=== PATIENT | male | born 1950 | race Caucasian/White ===

== ENCOUNTER 2025-09-30 15:22 | Emergency (ER) | payer MEDICARE, BC, SELFPAY ==
--- NOTE | 2025-09-30 15:40 | ED.GENADULT ---
HPI - General Adult General Chief complaint: Psychiatric Symptoms Stated complaint: Psych evaluation Time Seen by Provider: 09/30/25 15:58 Source: patient Mode of arrival: ambulatory Limitations: no limitations History of Present Illness ED Provider: dionicio maxwell do HPI narrative: 75 year old male with a history of hypertension, hyperlipidemia, hypothyroidism but no past medical history of mental illness or suicide attempt. He has never been in inpatient mental health facility. He is dealing with some life stress per the that he has taken full responsibility for. He does suffer from anxiety. He felt a questionnaire and his primary care office today stating do everything of any your life when he puts sometimes. But he states he would not hurt himself in his has no concerns. He has no access to guns. He has never been attempt in the past. He states his PCP made him come here but he does not feel this is necessary I had a long discussion was about triage they both contract for safety they will follow up with the therapist has no concerns that he will harm himself and patient states he felt like he was trapped into this after filling out the questionnaire. MD complaint: Anxiety and depression Onset (ago): week(s) Severity: mild Relieving factors: none Exacerbating factors: other Associated symptoms: denies other symptoms Related Data Allergies Allergy/AdvReac Type Severity Reaction Status Date / Time Iodinated Contrast Media AdvReac Difficulty Verified 09/30/25 15:56 (Contrast Dye) Swallowing Review of Systems Review of Systems: Yes all other systems are reviewed and are negative PMFSH Past Medical History Attestation statement: The following information was validated with the patient. Source: old records reviewed Medical History Hyperlipidemia Hypothyroidism (acquired) Hypertension Social History Social History (Updated 09/30/25 @ 16:37 by Dionicio Maxwell DO) Patient Tobacco Use Status: Tobacco use Unknown Advance Directives: No Advance Directives Information Provided: No Do you have a plan to hurt others: No Plan Physical Exam ED Vital Signs: Vital Signs - 24 hr 09/30/25 15:54 09/30/25 16:14 Temperature 98.1 F 98.1 F Pulse Rate 61 61 Respiratory Rate 16 16 Blood Pressure 139/85 139/85 Pulse Oximetry 99 99 Oxygen Delivery Method Room Air Room Air BMI result Body Mass Index 25.1 Appearance: Alert. Oriented X3. No acute distress. Eyes: Pupils equal, round and reactive ENT: Atraumatic Neck: Normal inspection. CVS: Pulses normal. Respiratory: No respiratory distress. Abdomen: Soft and nontender. Atraumatic Skin: Skin warm and dry. Normal skin color. Extremities: Normal range of motion Neuro: Oriented X 3. No motor deficit. No sensory deficit. Steady gait Course Course Course Narrative: This is a Rapid Medical Examination (RME) performed by Yoni Culver PA-C in triage. Full HPI, ROS, assessment and treatment plan per primary provider in the Main ED. Hx: 75 yo M here from PCP office for passive SI. no plan. states he is under a lot of stress and it's ruining my life . reports fleeting thoughts of harming himself. Plan: Medical Decision Making Medical Decision Making MDM Narrative: 75 year old male with a history of hypertension, hyperlipidemia, hypothyroidism but no past medical history of mental illness and no access to firearms. He is sent here via his primary care for vague passive SI but no plan and no attempts. He and his are asking to leave. They seem very reasonable they have no concerns and contract for safety. He has no risk factors. He agrees to call therapist. He has no active SI or HI. The is advocated for him to leave Differential Diagnosis Differential Diagnoses: The differential diagnosis associated with the presentation includes Stress reaction Admission/Observation Consideration of admission/observation: Escalation of care including admission/observation considered I do not think he would benefit or needs inpatient psychiatric admission Independent Historian Clinical information obtained from an independent historian. History obtained from or confirmed by: Spouse External Record Review External record reviewed: Outpatient record Discharge Plan Discharge Clinical Impression: Stress Patient Disposition: Home, Self-Care Instructions: Stress (ED) Additional Instructions: You were seen in our Emergency Department today for treatment of a behavioral health issue. It is important after your visit that you follow up with either your behavioral health provider or a primary care doctor within 7 days.? If you have trouble finding a therapist you can reach out to [address] [phone] The National Suicide and Crisis Lifeline can be reached 7 days a week 24 hours a day.? Call 988 to speak with someone.? Return for any worsening symptoms or concerns such as thoughts of self harm or harm to others. Please call 911 if you feel your mental health is worsening.? Referrals: Garth Davis MD [Primary Care Provider, Internal Medicine] Interventions: [place]-Suicide Risk Severity Scale Last Done: 09/30/25 16:13 ED Discharge Assessment Last Done: 09/30/25 16:14 Discharge Date/Time: 09/30/25 16:15 Print Language: Frisian
[2025-09-30 15:54] VITALS: BP 139/85; PULSE 61; RESP 16; TEMP 36.7; O2SAT 99; BMI 25.1
[2025-09-30 16:14] VITALS: BP 139/85; PULSE 61; RESP 16; TEMP 36.7; O2SAT 99
--- OUTSIDE RECORDS SUMMARY | 2025-09-30 19:05 | XMS_ITS | Data Portability ---
Author Organization [facility], [facility] Address [address] [place] [address] Care Team Providers Care Dish Machine Operator Name Role Phone Nahomy Ching Primary Care Provider Assessment No assessment recorded. Plan of Treatment Reminders Order Date Submit Date Provider Name Organization Details Last Modified By Last Modified Time Details Appointments None recorde d. Lab None recorde d. Referral None recorde d. Procedures None recorde d. Surgeries None recorde d. Imaging XR, tibia + fibula, 2 view 2024 14:16: 15 025 [facility] [address],[facility] [address], [place], [address], Shirin moreno PA-C 5 16:10:18 MedicationOrders None recorde d. VaccineOrders None recorde d. Patient TargetsNo targets recorded. Patient InstructionsNo instructions recorded. Reason for Referral None Reported. Results Created Date Observation Date Name Description Value Unit Range Abnormal Flag Specimen Type Note LastModifiedBy Organization Detail LastModifiedTime 06/06/2025 06/06/2025 tibia/fibula 2 view [email or web address]=jaFfCnmQH6eGrtXHm8n%7CFUavEvobo3zpui%1Ac7PJv7 ztOqfT0pDoVNbtdPp2JaAISgVxyDKG0aSvMPmru53c6004OX1GxeD7KWhZnHlTrkGuM Not Available [facility] , [address],[facility] [address] , [place] , [address], , 06/06/2025 14:33:36 06/06/2025 06/06/2025 tibia/fibula 2 view [email or web address]=ayVuVczXW5eTyxUUo1o%9PJTswGndua9yytn%7Ic8XYu9 ysIcrX0jDaNAstgQp3PjXFNdEjyFAV6eDbVWxln45u6430LY4IchZ9YJiEkWkCzmHyL Not Available [facility] , [address],[facility] [address] , [place] , [address], , 06/06/2025 14:33:37 Result Notes Documentation Provider Name and Address Organization Details Recorded Time Xr, Tibia + Fibula, 2 View : [email or web address] Encrypted=nqFyUfwAH9rOkxQ Uv6g%2FAJhcVeqgu4himn%2Fg 6BIo6ecXinF7jWcCDknsKm9Pm IZQtLhwKBD5hSxZVoqz73i323 6LA1RbgL4BVjFnXcRfgQiT Not Available [facility] 06/06/2025 14:33: 36 Xr, Tibia + Fibula, 2 View : [email or web address] Encrypted=ukUgNbaGJ3nFdnC Uv6g%9RZNkqHrtxe5kdyv%2Fg 2EKw4knVdwY9kAnFWogzOh6Ms UAExAczTSA1tYlBHedo10r767 3NP1JxdM7HEuCzYvTqfYwV Not Available [facility] 06/06/2025 14:33: 37 Problems Name Problem SNOMED Code Status Onset Date Resolution Date Notes Provider Name and Address Organization Details Recorded Time No complaints 351701742 Active Status : 'A'; Not Available [facility] 4 09:25:34 Pain of left calf 7617172956991 109 Active 2024 MIHAI torres [place] - [facility] 14:15:40 Problem Notes None recorded. Medical Equipment None Reported. Allergies Allergen ID Allergen Name Allergen Category Reaction Reaction Severity Criticality Documentation Date Start Date Code Code System Note Provider Name and Address Organization Details Recorded Time 418417 iopamidol medicatio n Not available Not available Not available 06/06/2025 5966 RxNorm MIHAI DELANEY torres [place] - [facility] 14:15:31 Medications Name Authored On Sig Start Date Stop Date Status Note Indication Fill Status Repeat Number Dispense Quantity LastModified by Organization Details LastModified Time amlod ipine 2.5 mg table t 5 13:00:08 TAKE 1 TABL ET BY KENDELL Dee active Not Available Not availab le 0 Not Available Not Available [facility] - External Data Service - prod 06/06/2025 13:00:08 atorv astat in 20 mg table t 5 13:00:08 TAKE 1 TABL ET BY KENDELL Dee active Not Available Not availab le 0 Not Available Not Available [facility] - External Data Service - prod 06/06/2025 13:00:08 levot hyrox ine 88 mcg table t 5 13:00:08 TAKE 1 TABL ET BY CATHIUT Rolo Dee active Not Available Not availab le 0 Not Available Not Available [facility] - External Data Service - prod 06/06/2025 13:00:08 losar medina 25 mg table t 5 13:00:08 TAKE 1/2 TABL ET BY CATHIUT Rolo Dee active Not Available Not availab le 0 Not Available Not Available [facility] - External Data Service - prod 06/06/2025 13:00:08 tamsu losin 0.4 mg capsu le 5 13:00:08 TAKE 1 CAPS ULE BY CATHIUT Rolo Dee active Not Available Not availab le 0 Not Available Not Available [facility] - External Data Service - prod 06/06/2025 13:00:08 cipro floxa chivo 500 mg table t 13:00:10 TAKE 1 TABL ET BY MOUT H TWIC E JEAN Y TAKE IN MORN ING AND EVEN ING DAY OF PROS JONES BIOP SY active Not Available Not availab le 0 Not Available Not Available [facility] - External Data Service - prod 06/06/2025 13:00:10 diaze yamile 10 mg table t 13:00:10 TAKE 1 TABL ET BY MOUT H ONCE A DAY NEED ED AT LEAS T 45 CAROLINE MISBAH PRIO R TO PROC EDUR E active Not Available Not availab le 0 Not Available Not Available [facility] - External Data Service - prod 06/06/2025 13:00:10 celec oxib 200 mg capsu le 13:03:47 TAKE 1 CAPS ULE BY MOUT H EVER Y DAY WITH MEAL S FOR LEFT CALF INFL TORSTEN TION active Not Available Not availab le 0 Not Available Not Available [facility] - External Data Service - prod 06/15/2025 13:03:47 finas terid e 5 mg table t 13:03:47 TAKE 1 TABL ET BY MOUT H EVER Y DAY active Not Available Not availab le 0 Not Available Not Available [facility] - External Data Service - prod 06/15/2025 13:03:47 omepr azole 20 mg capsu le,de layed relea se 13:03:47 TAKE 1 CAPS ULE BY MOUT H JEAN Y active Not Available Not availab le 0 Not Available Not Available [facility] - External Data Service - prod 06/15/2025 13:03:47 Vitals Date Recorded Body height Body mass index (BMI) Body weight Provider Name and Address Organization Details Last Updated DateTime 06/06/2025 172.72 cm 26.5 kg/m2 55435.07 g MIHAI BALTAZAR [place] - [facility] 06/06/2025 14:15:20 Social History Social History Observation Description Date Observed Sex Male Gender Identity Identifies as male 06/17/2025 Sexual orientation Straight or heterosexual 12/01 Legal Sex Male Status Not (finding) 09/30/20 25 No social history survey screeners recorded No social history SDOH screeners recorded Functional Status None recorded. No Functional Screening assessment recorded No Functional SDOH screeners recorded Mental Status None recorded. No Mental Screening assessment recorded No Mental SDOH screeners recorded Family History Nothing Reported. Medical History No medical history recorded. Past Encounters Encounter ID Performer Location Encounter Start Date Encounter Closed Date Diagnosis/Indication Diagnosis SNOMED-CT Code Diagnosis ICD10 Code Diagnosis IMO Codes Diagnosis Note [id number] Shirin Fernandez PA-C [facility] [place] [address] [place] [address] 06/06/2025 12:58:49 06/17/2025 14:08:55 Pain of left calf 5805672625 744192 M79.662 [id number] Health Concerns Section Related Observation LastModified by Organization Detai ls LastModified Time None Recorded Concern Status LastModified by Organization Details LastModified Time None Recorded SDOH Concern Status LastModified by Organization Detai ls LastModified Time None Recorded Advance Directives Directive None Recorded Payers Insurance Date Sequence Insurance Name Policy Number Policy Feng Covered Member ID Feng Member ID Guarantor Name 06/17/2025 2 [place] [id number] Oct Sayda [id number] Oct Carlo Reagan 06/06/2025 1 [place] [employer] [place] Oct Sayda [id number] Oct Sayda Notes Date Note Type Note Provider Name and Address Organization Details Recorded Time 06/06/2025 text/html I am seeing the patient today under the supervision of Dr. Guerra who was available but who did not see the patient. History is taken from the patient HPI: Patient presents today to the orthopedic urgent care clinic 75-year-old male concerning intermittent and vague left calf pain. He has a history of a right calf Achilles tear and repair many years ago. His left calf started bothering him last . This was after a bike ride. He rested it and thought it got better and went for very light bike ride and seemed to do well however it seems to be provoked after time in the car. Tells me he gets out of the car and he has a very severe limp. Has occasional very sharp pains to his left Achilles. He went to 1 visit of physical therapy where they could not recommend locate his pain and he had no symptoms so he was discharged. Subsequently had a negative ultrasound at [facility]. He presents today to the orthopedic urgent care clinic for further evaluation. Past family, medical, social history and review of systems has been reviewed, updated and is located in the patient s chart. EXAMINATION: Patient transitions without difficulty. He has left ankle range of motion intact. Achilles is clearly palpable. He has full dorsi and plantarflexion intact. He transitions and ambulates without difficulty. Calf was nontender to palpation. He shows me an area in the muscle belly of his calf where he had an old injury. I do not palpate any rents or deficits here. He is otherwise alert oriented x 3 mood and affect appropriate within normal limits. X-RAYS: Were ordered, obtained and independently reviewed today in our office. There were 2 views of the left tibia shows no acute bony pathology or process. Performed in the findings are as follows: DIAGNOSIS: Left calf strain MEDICAL DECISION MAKING: Patient is educated. I would recommend ice rest stretching and foam rolling. He is going to let me know how he is doing. If he has worsening signs or symptoms he will let me know and we will further evaluate. Questions answered on his behalf. Medication is prescribed today. Patient has been counseled on the risks, benefits, and interactions with other medications at this time. Questions regarding medications of any answered on behalf of the patient. Celecoxib is prescribed to the patient at this time. Risks and benefits of the medication are discussed. He is to take 1 tab p.o. daily. Therapy recommended and referral given today: Today's visit involved examining the patient, reviewing the history, reviewing the radiographic studies, counseling the patient regarding treatment options, and the administrative tasks including placing orders, preparing patient information and home handouts and preparing the visit note. This note was generated with [facility] [employer] [facility] speech recognition classics professor dictation software. Please excuse any errors that may have been overlooked during review of this note. Sometimes, these errors may affect the content or meaning of a given sentence. Please call for corrections. Shirin Fernandez PA-C [address] [facility] [address], [place], [address], [facility] - [facility] 06/11/2025 14:37:43 Care Team Name Role Member ID Specialty Address Phone NAHOMY CHING MD Primary Care Provider [address], [place]
--- OUTSIDE RECORDS SUMMARY | 2025-09-30 19:05 | XMS_ITS | Encounter Summary ---
Author Organization [facility] Address [address] [place] [address] Care Team Providers Care Bass Guitar Teacher Name Role Phone Unavailable Primary Care Provider Unavailabl e Encounter Details Date Type Department Care Team (Late st Contact Info) Description 10/17/2024 Lab Requisition [facility] - Main Lab [address] [facility] [place] [phone] Herbert Zelaya MD [address] [facility] [address] [place] [address] Elevated prostate specific antigen (PSA) Social History Tobacco Use Types Packs/Day Years Used Date Smoking Tobacco: Never Assessed Sex and Gender Information Value Date Recorded Sex Assigned at Male 10/21/2024 12:48 PM EST Legal Sex Male 3:59 PM EST Gender Identity Male 10/21/2024 12:48 PM EST Sexual Orientation Straight 10/21/2024 12 :47 PM EST documented as of this encounter Plan of Treatment Not on file documented as of this encounter Procedures Procedure Name Priority Date/Time Associated Diagnosis Comments FLUOROQUINOLONE RESISTANT GNR IDENTIFICATION AND SUSCEPTIBILITY Routine 10/17/2024 12:00 AM EST Elevated prostate specific antigen (PSA) CULTURE FLUOROQUINOLONE RESISTANT ORGANISM Routine 10/17/2024 12:00 AM EST Elevated prostate specific antigen (PSA) documented in this encounter Results * Fluoroquinolone resistant GNR identification and susceptibility (10/17/2024 12:00 AM EST) Result 1 No Fluoroquinolone Resistant GNR Detected. 10/21/2024 11:05 AM EST [facility] Swab Rectum structure / Unknown 10/17/2024 10/17/2024 10:21 AM EST Narrative [facility] - 10/21/2024 11:05 AM EST Performed at: [facility] [id number] Vocational Psychologist: Mariella Sutton MD, Phone: [phone] Herbert Zelaya MD LAB MICROBIOLOGY - G ENERAL ORDERABLES Final Result Performing Organization Address City/[facility]/ZIP Co de Phone Number [facility] * Culture fluoroquinolone resistant organism (10/17/2024 12:00 AM EST) Fluoroquinolone Resist GNR Cul Final report 10/21/2024 11:05 AM EST [facility] Swab Rectum structure / Unknown 10/17/2024 10/17/2024 10:21 AM EST Narrative [facility] - 10/21/2024 11:05 AM EST Performed at: [facility] [id number] Vocational Psychologist: Mariella Sutton MD, Phone: [phone] Herbert Zelaya MD LAB MICROBIOLOGY - G ENERAL ORDERABLES Final Result [facility] documented in this encounter Visit Diagnoses Diagnosis Elevated prostate specific antigen (PSA) documented in this encounter
--- OUTSIDE RECORDS SUMMARY | 2025-09-30 19:05 | XMS_ITS | Clinical Summary ---
Author Organization [address] Address [address] [place] [phone] Phone Care Team Providers Care Deckhand Clam Dredge Name Role Phone Unavailable Primary Care Provider Unavailabl e Allergies Active Allergy Reactions Criticality Noted Date Comments Iopamidol Sore Throat Low 05/24/2018 Medications amLODIPine (NORVASC) 2.5 mg tablet Take 1 tablet (2.5 mg total) by mouth 1 (one) time each day. Active atorvastatin (LIPITOR) 20 mg tablet Take 1 tablet (20 mg total) by mouth 1 (one) time each day. Active finasteride (PROSCAR) 5 mg tablet Take 1 tablet (5 mg total) by mouth 1 (one) time each day. Active levothyroxine (SYNTHROID, LEVOTHROID) 88 mcg tablet Take 1 tablet (88 mcg total) by mouth 1 (one) time each day. Active losartan (COZAAR) 25 mg tablet Take 1 tablet (25 mg total) by mouth 1 (one) time each day. 05/20/2024 Active tamsulosin (FLOMAX) 0.4 mg 24 hr capsule Take 1 capsule (0.4 mg total) by mouth. 07/23/2024 Active omeprazole OTC (PriLOSEC OTC) 20 mg EC tablet Take 1 tablet (20 mg total) by mouth 1 (one) time each day. 09/01/2024 Active Surgical History Surgery Date Site/Laterality Comments ACHILLES TENDON SURGERY Right HERNIA REPAIR COLONOSCOPY UPPER GASTROINTESTINAL ENDOSCOPY ORIF TIBIA FRACTURE Medical History Medical History Date Comments Hypertension Hyperlipidemia Hypothyroidism Social History Tobacco Use Types Packs/Day Years Used Date Smoking Tobacco: Never Assessed Sex and Gender Information Value Date Recorded Sex Assigned at Male 10/21/2024 12:48 PM EST Legal Sex Male 3:59 PM EST Gender Identity Male 10/21/2024 12:48 PM EST Sexual Orientation Straight 10/21/2024 12 :47 PM EST Last Filed Vital Signs Vital Sign Reading Time Taken Comments Blood Pressure 108/76 11/15/2024 2:16 PM EST Pulse 50 11/15/2024 2:16 PM EST Temperature 36.4 C (97.5 F) 11/15/2024 1:48 PM EST Respiratory Rate 16 11/15/2024 2:00 PM EST Oxygen Saturation 100% 11/15/2024 2:16 PM EST Inhaled Oxygen Concentration - - Weight 77.1 kg (170 lb) 10/23/2024 2:00 PM EST Height 172.7 cm (5' 8 ) 10/23/2024 2:00 PM EST Body Mass Index 25.85 10/23/2024 2:00 PM EST Plan of Treatment Health Maintenance Due Date Last Done Comments Colorectal Cancer Screening: Colonoscopy 1950 Zoster Vaccines (2 of 2) 05/21/2018 03/26/2018 Pneumococcal Vaccine: 50+ Years (2 of 2 - PCV20 or PCV21) 10/22/2019 10/22/2018 Abdominal Aortic Aneurysm (AAA) Screen 08/31/2022 Cholesterol Screening (Lipid Panel) 08/31/2022 Hepatitis C Screening 08/31/2022 Medicare Annual Wellness Visit 08/31/2022 Social Influencers of Health Screening 08/31/2022 Depression Screening 10/02/2024 Hypertension/CHF/CAD Annual BMP Blood Test 10/22/2024 COVID-19 Vaccine ( season) 2025 07/26/2024, 07/10/2023, 01/14/2022, Additional history exists Influenza Vaccine (#1) 2025 , 07/10/2023, 09/20/2021, Additional history exists Falls Risk Assessment 11/15/2025 11/15/2024 RSV Immunization Adult Patients (1 - 1-dose 75+ series) 2027 DTaP,Tdap,and Td Vaccines (2 - Td or Tdap) 03/28/2032 03/28/2022 HIB Vaccines Aged Out No longer eligi ble based on patient's age to complete this topic HPV Vaccines Aged Out No longer eligi ble based on patient's age to complete this topic Hepatitis A Vaccines Aged Out No long er eligible based on patient's age to complete this topic Hepatitis B Vaccines Aged Out No long er eligible based on patient's age to complete this topic IPV Vaccines Aged Out No longer eligi ble based on patient's age to complete this topic MMR Vaccines Aged Out No longer eligi ble based on patient's age to complete this topic Meningococcal ACWY Vaccine Aged Out N o longer eligible based on patient's age to complete this topic Meningococcal B Vaccine Aged Out No l onger eligible based on patient's age to complete this topic RSV Immunization Patients Under 20 months Aged Out No longer eligible based on patient's age to complete this topic Varicella Vaccines Aged Out No longer eligible based on patient's age to complete [place] [address] MEDICARE [facility]
--- OUTSIDE RECORDS SUMMARY | 2025-09-30 19:05 | XMS_ITS | Clinical Summary ---
Author Organization [facility] Address [address] [place] [address] Care Team Providers Care Stuffing Machine Operator Name Role Phone Unavailable Primary Care Provider Unavailabl e Allergies No known active allergies Medications atorvastatin (LIPITOR) 20 MG tablet 01/25/2021 Active finasteride (PROSCAR) 5 mg tablet 01/18/2021 Active levothyroxine 88 MCG tablet 04/13/2021 Active omeprazole (PriLOSEC) 20 MG capsule 02/25/2021 Active tamsulosin (FLOMAX) 0.4 mg cap 04/09/2021 Active Social History Tobacco Use Types Packs/Day Years Used Date Smoking Tobacco: Never Assessed Sex and Gender Information Value Date Recorded Sex Assigned at Not on file Legal Sex Male 7:18 AM EDT Gender Identity Not on file Sexual Orientation Not on file Last Filed Vital Signs Vital Sign Reading Time Taken Comments Blood Pressure - - Pulse 95 04/17/2021 10:44 AM EDT Temperature 36.2 C (97.2 F) 04/17/2021 10:44 AM EDT Respiratory Rate - - Oxygen Saturation 99% 04/17/2021 10:44 AM EDT Inhaled Oxygen Concentration - - Weight - - Height - - Body Mass Index - - Plan of Treatment Not on file Medical Devices Not on file Insurance MEDICARE
--- OUTSIDE RECORDS SUMMARY | 2025-09-30 19:05 | XMS_ITS | Data Portability ---
Author Organization [facility] Address [address] [place] [id number] Care Team Providers Care Returns Clerk Name Role Phone NAHOMY CHING Primary Care Provider NAHOMY CHING Referring Provider NAHOMY CHING Primary Care Provider Assessment No assessment recorded. Plan of Treatment Reminders Order Date Submit Date Provider Last Modified By Organization Details Last Modified Time Details Appointments None record ed. Lab None record ed. Referral None record ed. Procedures None record ed. Surgeries None record ed. Imaging None record ed. Medication Orders None record ed. Patient TargetsNo targets recorded. 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 Sutures removed and steri strips applied. Light bandages were reapplied followed by CAM boot with 4 heel wedging. Dressings are to remain in place as well as dry and clean for 2 days. . Patient should continue to remain NWBing. Patient should continue with DVT prophylaxis. At this time, the patient may shower and get the foot wet. They were instructed to not soak the foot for extended periods of time. The patient was instructed to be partial weightbearing flatfooted with crutches in CAM boot with wedging for the next 6 weeks. Can do some isometric plantarflexion in the CAM boot daily. Will reduce heel height of wedging in 6 weeks when we make him FWB in CAM boot and begin PT at that time. Would recommend following the Sherita-Helander protocol for early loading and functional rehab. He has his daughter's wedding celebration in November in [place] that he will want to be walking at. Has a PT in [facility] that he has worked with and trusts for this for rehab. Aris will return to the office in 6 weeks for next post-op and to start PT at that time. 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 Can adjust the achilles CAM boot at this time to go from 30-15 for the next week. Then should do 30-0 for the next week. Can d/c use of crutches. Should do that 30-0 for 2 weeks then we will likely transition to a sneaker with and adjustable heel wedge at that time. After he has been in a 30-0 range for a week, can get on the bike with a flat pedal and wearing the boot for some light spinning. Would recommend following the Sherita-Helander protocol for early loading and functional rehab. Has a PT in [facility] that he has worked with and trusts for this for rehab. Would not recommend any eccentrics at all during his rehab until around 6+ months. Aris will return to the office in 4 weeks for next post-op and to check in with progress at PT and likely transition to sneaker with heel wedge at that time. 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 Would recommend continue following the Sherita-Helander protocol for early loading and functional rehab. Would not recommend any eccentrics at all during his rehab until around 6+ months. Can continue to bike as tolerated. Would recommend CAM boot outside biking for the next month, but if on the sales trainer can just wear a shoe with the adjustable heel lift. Should use the heel lift at all times for the next 4 weeks. In 4 weeks, will do a reduction of the heel lift one level per week. If doing great in a month can push next appt back to [address] at this time with heel lift as well. Aris will return to the office in 4 weeks for next post-op likely transition to sneaker with reduction of heel wedge weekly. If doing great, can do this on his own and f/u 2 months later. 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 Should likely continue with PT at this time given that he still has some weakness on the repaired side compared to the contralateral leg. Would recommend NO eccentrics at this time as his tension is excellent. Should build more strength on the R side, focusing heavily on plantarflexion. Can do this with bands or weights. May also want to consider blood flow restriction therapy to improve the results and get more strength. Balance and gait look fairly stable though. Would not recommend much stretching. Would recommend foam rolling to the calves. Continue to ride as much as he wants. Can come out of the saddle at this time as needed for more climbing. The established patient visit today had a decision making nature that was of low level complexity or required a total time of 20-29 minutes including time spent directly with the patient explaining their conditions, causes and treatment options as well as time reviewing external notes, ordering and reviewing any tests if applicable. An opportunity was provided for the patient to ask questions and all of the patient's questions were answered to their satisfaction. Aris will return to the office in 6 months for next post-op and f/u after further PT. 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 Should likely continue with PT at this time given that he is very active. Balance and gait look fairly stable though. Would not recommend much stretching. Would recommend foam rolling to the calves. Continue to ride as much as he wants. The findings of the exam were explained thoroughly to the patient. Their Achilles pain is where the symptoms are being felt, but the underlying cause is not specific to the foot. Treatment goals will be aimed at addressing both the foot pain and the underlying cause of the foot pain. Patient has pain to Achilles tendon. Treatment options for Achilles pain include rest, ice, heat, anti-inflammatory medication, reduction in activity or activity which aggravates the condition, changes in shoe gear, the use of night splints, orthotics, massage, or physical therapy. As with any condition, finding the cause of the pain is as important as treating the pain. The primary cause of Achilles pain is typically not something that originates in the foot, but rather, originates proximally, be it from the tight musculature that starts in the calf that attaches to the foot, or with weak or dysfunctional muscles in the hip and core, where the leg attaches to the body. Discussed with the patient that they may benefit from a course of treatment including contrast baths. Contrast baths are intended to serve as a physiologic pump with alternating vasoconstriction from the cold water and vasodilation from the warm water. The patient was instructed to perform alternating soaks in the cold bath and hot bath for 5 mins per soak. The patient was instructed to always begin and end on cold and typically perform these at least once per day. May consider EPAT if not healed in the next 2-3 months. The established patient visit today had a decision making nature that was of low level complexity or required a total time of 20-29 minutes including time spent directly with the patient explaining their conditions, causes and treatment options as well as time reviewing external notes, ordering and reviewing any tests if applicable. An opportunity was provided for the patient to ask questions and all of the patient's questions were answered to their satisfaction. Aris will return to the office as needed . Not available 12/19/2022 15:17:53 Reason for Referral None Reported. Problems Name Problem SNOMED Code Status Onset Date Resolution Date Notes Provider Name and Address Organization Details Recorded Time Hyperchole sterolemia 11218045 [facility] 11:33:10 Rupture of right Achilles tendon 3511846160696 9107 Active 2022 Edwin Grant DPM [address], [address], [facility] 3 14:06:18 Foot pain 69659093 Active 2022 Edwin Grant DPM [address], [address], [facility] 3 14:06:18 Left Achilles tendinitis 8451549296912 02 Active 2022 Edwin Grant DPM [address], [address], [facility] 3 15:11:34 Problem Notes None recorded. Procedures Surgical History Date Name Laterality Status Provider Name and Address Organization Details Recorded Time 8 Leg Surgery completed Aisha Anderson [facility] 11/15/2021 11:32:38 Imaging Results None recorded. Procedure Notes None recorded. Medical Equipment None Reported. Allergies No known drug allergies Medications Name Sig Start Date Stop Date Status Note LastModified by Organization Details LastModified Time atorvastati n 20 mg tablet active Not Available Not Available Not Available amlodipine 2.5 mg tablet TAKE 1 TABLET BY MOUTH DAILY active Not Available Not Available No t Available oxycodone-a cetaminophe n 5 mg-325 mg tablet TAKE 1 TABLET BY MOUTH EVERY 6 HOURS 11/29 completed Not Available Not Available Not Available levothyroxi ne 88 mcg tablet active Not Available Not Available Not Available tamsulosin 0.4 mg capsule active Not Available Not Available Not Available losartan 25 mg tablet TAKE 1 TABLET BY MOUTH DAILY active Not Available Not Available No t Available docusate sodium 100 mg capsule TAKE ONE CAPSULE BY MOUTH EVERY DAY 11/29 completed Not Available Not Available Not Available omeprazole 20 mg capsule,del ayed release active Not Available Not Available Not Available finasteride 5 mg tablet active Not Available Not Available Not Available diazepam 5 mg tablet TAKE 1 TABLET BY MOUTH TWICE DAILY 11/29 completed Not Available Not Available Not Available hydroxyzine pamoate 25 mg capsule TAKE 1 CAPSULE BY MOUTH FOUR TIMES DAILY 11/29 completed Not Available Not Available Not Available enoxaparin 100 mg/mL subcutaneou s syringe ADMINISTE R 0.85 ML UNDER THE SKIN EVERY 12 HOURS 11/29 completed Not Available Not Available Not Available Eliquis 5 mg tablet TAKE 1 TABLET BY MOUTH TWICE DAILY 06/01 completed Not Available Not Available Not Available Eliquis DVT-PE Treatment 30-Day Starter 5 mg (74 tablets) in dose pack 06/01 completed Not Available Not Available Not Available Flowflex COVID-19 Antigen Home Test kit TEST DIRECTED TODAY 12/16 completed Not Available Not Available Not Available Vitals Date Recorded Body height Body mass index (BMI) Body weight Provider Name and Address Organization Details Last Updated DateTime 12/06/2021 172.72 cm 26.6 kg/m2 87261.66 g Lizzie Dickerson [facility] 12/06/2021 11:48:30 Date Recorded Body height Body mass index (BMI) Body weight Provider Name and Address Organization Details Last Updated DateTime 12/19/2022 172.72 cm 26.6 kg/m2 78742.66 g Esperanza Fierro [facility] 12/19/2022 14:19:48 Date Recorded Body height Body mass index (BMI) Body weight Provider Name and Address Organization Details Last Updated DateTime 01/17/2022 172.72 cm 26.6 kg/m2 46801.66 g Aisha Anderson [facility] 01/17/2022 11:26:29 Date Recorded Body height Body mass index (BMI) Body weight Provider Name and Address Organization Details Last Updated DateTime 02/14/2022 172.72 cm 26.6 kg/m2 00301.66 g Lizzie Ratlifffransisco [facility] 02/14/2022 10:53:29 Date Recorded Body height Body mass index (BMI) Body weight Provider Name and Address Organization Details Last Updated DateTime 06/08/2022 172.72 cm 26.6 kg/m2 46031.66 g Esperanza Fierro [facility] 06/08/2022 13:02:51 Social History Question Answer Notes LastModified by Organizat ion Details LastModified Time Tobacco Smoking Status Never Smoker Aisha torres [facility] 11/15/2021 11:32:34 Do You Have An Advance Directive? Yes Information not available 11/15/2021 Are You Blind Or Do You Have Difficulty Seeing? No Information not available 11/15/2021 Are You Deaf Or Do You Have Serious Difficulty Hearing? No Information not available 11/15/2021 Which Illicit Or Recreational Drugs Have You Used? None Information not available 11/15/2021 What Is Your Height? 5?8? Information not available 11/15/2021 What Is Your Weight? 175 Information not available 11/15/2021 Do You Have Type 2 Diabetes? No Information not available 11/15/2021 Do You Have Type 1 Diabetes No Information not available 11/15/2021 Are You Being Seen Today For A Work Related Injury? No Information not available 11/15/2021 What Is Your Shoe Size & Width? 8.5 Medium Information not available 11/15/2021 Do You Have A Medical Power Of Immigration Specialist? Yes Information not available 11/15/2021 What Is Your Relationship Status? Information not available 11/15/2021 How Much Tobacco Do You Smoke? No Information not available 11/15/2021 What Types Of Sporting Activities Do You Participate In? Cycling Information not available 11/15/2021 Do You Have Difficulty Walking Or Climbing Stairs? No Information not available 11/15/2021 Sex: Unknown Functional Status Question Answer Note LastModified by Organizat ion Details LastModified Time Do you use any illicit or recreational drugs? No Information not available 11/15/2021 What is your level of alcohol consumption? Moderate Information not available 11/15/2021 Do you or have you ever used smokeless tobacco? Never used smokeless tobacco Information not available 11/15/2021 Are you able to walk independently without assistance or assistive devices? YESWOREST Information not available 11/15/2021 What is your occupation? Retired Information not available 11/15/2021 Do you or have you ever used e-cigarettes or vape? Never used electronic cigarettes Information not available 11/15/2021 What is your exercise level? Moderate Information not available 11/15/2021 Mental Status None recorded. Family History Relationship Description Onset Age of this Age Resolved Age Notes LastModified by Organization Details LastModified Time Father No current problems or disability Not available 11/15 11:32:49 Mother No current problems or disability Not available 11/15 11:32:49 Medical History Condition Response High Blood Pressure Y High Cholesterol Y Past Encounters Encounter ID Performer Location Encounter Start Date Encounter Closed Date Diagnosis/Indication Diagnosis SNOMED-CT Code Diagnosis ICD10 Code Diagnosis IMO Codes Diagnosis Note [id number] Edwin Grant DPM [facility] [address] [address] 11/15/2021 11:28:42 11/15/2021 14:41:50 Foot pain 44661541 M79.671 Rupture of right Achilles tendon 1843433371 9134841 S86.091A [id number] Edwin Grant DPM [facility] [address] [address] 12/06/2021 11:34:23 12/06/2021 14:04:25 Foot pain 25945373 M79.671 Rupture of right Achilles tendon 4684051457 1675604 S86.091A [id number] Edwin Grant DPM [facility] [address] [address] 01/17/2022 11:18:40 01/17/2022 13:15:53 Foot pain 58081940 M79.671 Rupture of right Achilles tendon 7346561129 8268345 S86.091A [id number] Edwin Grant DPM [facility] [address] [address] 02/14/2022 10:51:26 02/14/2022 13:11:17 Foot pain 20122865 M79.671 Rupture of right Achilles tendon 9208237863 6731703 S86.091A [id number] Edwin Grant DPM [facility] [address] [address] 06/08/2022 13:00:00 06/08/2022 13:34:56 Foot pain 86473522 M79.671 Rupture of right Achilles tendon 6215313130 9149021 S86.091A [id number] Edwin Grant DPM [facility] [address] [address] 12/19/2022 14:16:43 12/19/2022 15:23:55 Foot pain 97511091 M79.671 Rupture of right Achilles tendon 3805607770 8194359 S86.091A Left Achil les tendinitis 8664867068 08781 M76.62 Health Concerns Section Related Observation LastModified by Organization Detai ls LastModified Time None Recorded Concern Status LastModified by Organization Details LastModified Time None Recorded Advance Directives Directive Y: Payers Insurance Date Sequence Insurance Name Policy Number Policy Feng Covered Member ID Feng Member ID Guarantor Name 12/16/2022 1 [place] [employer] Aris Carlo Alfredo [id number] 8 Oct Sayda 12/16/2022 2 [place] [id number] Oct Carlo Alfredo [id number] Oct Sayda Notes Date Note Type Note Provider Name and Address Organization Details Recorded Time 2 text/html Post-Op Follow UpReported by PatientHPIFor location, patient reportsright. For previous surgery, patient reportssurgical procedure: (r achilles tendon repair)anddate: (11/24/2021). For prior imaging, patient reportsx ray. For date of surgery, (11/24/2021).Patient presents to the office for his first post operative appointment after right achilles tendon repair on 11/24/2021. He relates that he is pain-free. He states that he stopped taking pain medication a few day after the surgery. Relates he is still taking his blood thinner. Edwin Grant DPM [address] [address], [place], [address], [facility] 12/06/2021 13:54:59 2 text/html Post-Op Follow UpReported by PatientHPIFor location, patient reportsright. For previous surgery, patient reportssurgical procedure: (r achilles tendon repair)anddate: (11/24/2021). For prior imaging, patient reportsx ray. For date of surgery, (11/24/2021).Patient presents to the office for his second post operative appointment after right achilles tendon repair on 11/24/2021. He relates no pain today. Reports he would like to discontinue use of crutches today. Relates he is scheduled to start PT Monday this week as long as he gets clearance to do so. Edwin Grant DPM [address] [address], [place], [address], [facility] 01/17/2022 12:12:40 2 text/html Post-Op Follow UpReported by PatientHPIFor associated symptoms, patient reportsswellingbut reportsno redness,no warmth,no ecchymosis,no drainage,no fever,no chills,no tingling,no burning,no aching,no throbbing, andno calf pain. For location, patient reportsright. For quality, patient reportsimproving. For severity, patient reportsno pain. For context, patient reportscam boot. For alleviating factors, patient reportssitting with feet elevated. For aggravating factors, patient reportsweight bearing. For previous surgery, patient reportssurgical procedure: (r achilles tendon repair)anddate: (11/24/2021). For previous injections, patient reportsnone. For previous treatment, patient reportsnone. For date of surgery, (11/24/2021).Patient presents to the office for his third post operative appointment after right achilles tendon repair on 11/24/2021. He relates that his heel is feeling great. He has no pain at this time. He has been wearing the boot all the time other than when he is doing physical therapy and doing exercises at home. Has been biking up to 2 hrs on his [employer] bike with the CAM boot on. Edwin Grant DPM [address] [address], [place], [address], [facility] 02/14/2022 11:45:04 2 text/html Post-Op Follow UpReported by PatientHPIFor associated symptoms, patient reportsswellingbut reportsno redness,no warmth,no ecchymosis,no drainage,no fever,no chills,no tingling,no burning,no aching,no throbbing, andno calf pain. For location, patient reportsright. For quality, patient reportsimproving. For severity, patient reportsno pain. For context, patient reportscam boot. For alleviating factors, patient reportssitting with feet elevated. For aggravating factors, patient reportsweight bearing. For previous surgery, patient reportssurgical procedure: (r achilles tendon repair)anddate: (11/24/2021). For previous injections, patient reportsnone. For previous treatment, patient reportsnone. For date of surgery, (11/24/2021).Aris presents to the office for his 4th post operative appointment after right achilles tendon repair on 11/24/2021. He relates that he was away for the past 4 weeks and continued to do PT exercises and would like input on whether if he should go to PT sessions still. Was biking while he was away. He relates biking on his mountain bike and goes to the gym for upper body exercises. He states that overall he thinks his achilles is improving. Edwin Grant DPM [address] [address], [place], [address], [facility] 06/08/2022 13:28:13 3 text/html Post-Op Follow UpReported by PatientHPIFor location, patient reportsright. For quality, patient reportsimproving. For severity, patient reportsno pain. For context, patient reportswearing shoes. For associated symptoms, patient reportsno redness,no warmth,no ecchymosis,no drainage,no swelling,no fever,no chills,no tingling,no burning,no aching,no throbbing, andno calf pain. For previous surgery, patient reportssurgical procedure: (r achilles tendon repair)anddate: (11/24/2021). For previous injections, patient reportsnone. For previous treatment, patient reportsnone. For date of surgery, (11/24/2021).Aris presents to the office for 1 year post operative appointment after right achilles tendon repair on 11/24/2021. He relates that his right Achilles is doing well and denies any pain. He relates that he can feel tightness in the right Achilles. He relates that he is still seeing a PT once/month and those visits includes stetches. He relates that his PT has written a letter for today's visit. He relates that the right Achilles does not limit his with ADLs or with biking. He also relates that he has tightness and tenderness in the left Achilles tendon for which he has been doing those PT exercises that he does for the right. Edwin Grant, DPRonda [address], [address], [place] - [facility] 12/19/2022 15:19:21
--- OUTSIDE RECORDS SUMMARY | 2025-09-30 19:05 | XMS_ITS ---
Author Name [facility] Organization Unknown Care Team Organization Name Specialty Phone Email Start Date End [facility] 03/04/2023 [facility] Davis MD [facility]
== END 2025-09-30 16:15 | disposition home or self-care (01) ==
LOC: HO.ED 16:05
PROVIDERS: Emergency Provider Emergency Medicine; PCP Internal Medicine
DX: F43.9 Reaction to severe stress, unspecified (principal); F41.9 Anxiety disorder, unspecified; I10 Essential (primary) hypertension; E78.5 Hyperlipidemia, unspecified; E03.9 Hypothyroidism, unspecified
CPT/HCPCS: 99283